=== PATIENT | male | born 1995 | race Hispanic/Latino ===

== ENCOUNTER 2018-12-11 00:27 | Emergency (ER) | payer OTHER ==
[2018-12-11 00:40] VITALS: BMI 30.8
[2018-12-11 00:45] VITALS: RESP 18; O2SAT 100
--- NOTE | 2018-12-11 01:31 | ED PDOC ---
HPI: Psych/Substance Abuse Time Seen by Provider: 12/11/18 01:00 Chief Complaint (Nursing): Psychiatric Evaluation Chief Complaint (Provider): agitated History Per: Patient, EMS Additional Complaint(s): 23 y/o male brought in by EMS for evaluation. As per EMS, 911 was called to report a noise complaint by patient's neighbor, and when EMS arrived patient was aggressive and agitated. Patient calm at present; states he got "frustrated" tonight because he threw up after eating his [employer] cheesy bread and got mad about that so was slamming things and yelling and his neighbor called. Patient denies suicidal/homicidal ideations, alcohol/drug use, chest pain, shortness of breath, palpitations, abdominal pain, changes in bowel movements. Past Medical History Reviewed: Historical Data, Nursing Documentation, Vital Signs Vital Signs: Last Vital Signs Temp 98.3 F 12/11/18 00:40 Pulse 115 H 12/11/18 00:40 Resp 18 12/11/18 00:40 BP 130/76 12/11/18 00:40 Pulse Ox 100 12/11/18 00:40 - Medical History PMH: No Chronic Diseases - Surgical History Surgical History: No Surg Hx - Family History Family History: States: No Known Family Hx - Living Arrangements Living Arrangements: Other (roommates) - Allergies Allergies/Adverse Reactions: Allergies Allergy/AdvReac Type Severity Reaction Status Date / Time No Known Allergies Allergy Verified 12/11/18 00:40 Review of Systems ROS Statement: Except As Marked, All Systems Reviewed And Found Negative Psych: Positive for: Other (agitated, aggressive) Physical Exam - Reviewed Nursing Documentation Reviewed: Yes Vital Signs Reviewed: Yes - Physical Exam Appears: Positive for: Well, Non-toxic, No Acute Distress Head Exam: Positive for: ATRAUMATIC, NORMAL INSPECTION, NORMOCEPHALIC Skin: Positive for: Normal Color Eye Exam: Positive for: Normal appearance ENT: Positive for: Normal ENT Inspection Cardiovascular/Chest: Positive for: Regular Rate, Rhythm Respiratory: Positive for: Normal Breath Sounds Gastrointestinal/Abdominal: Positive for: Normal Exam Back: Positive for: Normal Inspection Extremity: Positive for: Normal ROM Neurological/Psych: Positive for: Awake, Alert, Oriented (x3) - ECG O2 Sat by Pulse Oximetry: 100 - Progress ED Course And Treament: -crisis eval 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 Prescott. Information given for outpatient follow up Patient tolerating PO on re-eval, denies abdominal pain, nausea. Patient was advised to follow up with PMD within 2-3 days Diet modification Return precautions given Disposition - Clinical Impression Clinical Impression: Vomiting, Anxiety - Patient ED Disposition Is Patient to be Admitted: No Counseled Patient/Family Regarding: Studies Performed, Diagnosis, Need For Followup - Disposition Disposition: Routine/Home Disposition Time: 03:06 Condition: IMPROVED Instructions: Nausea and Vomiting, Adult, Anxiety, Adult (DC) Forms: [employer] ([place])
[2018-12-11 03:15] VITALS: BP 131/82; PULSE 99; TEMP 98.4
== END 2018-12-11 03:51 | disposition home or self-care (01) ==
LOC: H.ER 00:27
DX: R11.10 Vomiting, unspecified (principal); F41.9 Anxiety disorder, unspecified